=== PATIENT | male | born 1980 | race Two or more races ===

== ENCOUNTER 2017-08-13 07:14 | Day surgery (SDC) | payer BC ==
[~2017-08-13] VITALS: Ht 170.2 cm; Wt 123.0 kg
[2017-08-13 07:41] VITALS: BP 132/91
[2017-08-13] MEDS ORDERED: BUPIVACAINE/PF 0.5% ONE (07:58)
[2017-08-13] MEDS ORDERED: EPINEPHRINE 1 MG/ML, 1ML ONE (07:58)
[2017-08-13] MEDS ORDERED: MIDAZOLAM 1 MG/ML, 2ML ONE (10:10)
[2017-08-13] MEDS ORDERED: FENTANYL PF 100 MCG/2ML ONE (10:10)
[2017-08-13] MEDS ORDERED: KETOROLAC 30 MG/1 ML ONE (10:33)
[2017-08-13] MEDS ORDERED: DEXAMETHASONE 4 MG/ML, 1ML ONE (11:29)
[2017-08-13] MEDS ORDERED: CEFAZOLIN 1,000 MG ONE (11:29)
[2017-08-13] MEDS ORDERED: ONDANSETRON 2MG/ML, 2ML ONE (11:29)
[2017-08-13] MEDS ORDERED: PROPOFOL 10 MG/ML, 20ML ONE (11:29)
[2017-08-13] MEDS ORDERED: HYDROcodone/APAP 7.5-325MG/15ML UDC PO PRN (11:30)
[2017-08-13] MEDS ORDERED: METOPROLOL 1 MG/ML, 5ML IV PRN (11:30)
[2017-08-13] MEDS ORDERED: hydrALAzine 20 MG/ML, 1ML IV PRN (11:30)
[2017-08-13] MEDS ORDERED: ACETAMINOPHEN 325 MG TABLET PO PRN (11:30)
[2017-08-13] MEDS ORDERED: FENTANYL PF 100 MCG/2ML IV PRN (11:30)
[2017-08-13] MEDS ORDERED: DIAZEPAM 5 MG/ML, 2ML IVPush PRN (11:30)
[2017-08-13] MEDS ORDERED: ALBUTEROL SULFATE 2.5 MG/3 ML NPPB PRN (11:30)
[2017-08-13] MEDS ORDERED: LABETALOL 5MG/ML, 20ML IV PRN (11:30)
[2017-08-13] MEDS ORDERED: HYDROmorphone 1 MG/ML, 1ML IV PRN (11:30)
[2017-08-13] MEDS ORDERED: OXYcodone 5 MG/5 ML ORAL.SOL UDC PO PRN (11:30)
[2017-08-13] MEDS ORDERED: EPHEDRINE 50 MG/ML, 1ML IVPush PRN (11:30)
[2017-08-13] MEDS ORDERED: PROMETHAZINE 25 MG/ML, 1ML IV PRN (11:30)
[2017-08-13] MEDS ORDERED: ONDANSETRON 2MG/ML, 2ML IVPush PRN (11:30)
[2017-08-13] MEDS ORDERED: MEPERIDINE/PF 25MG/0.5ML IVPush PRN (11:30)
[2017-08-13] MEDS ORDERED: MIDAZOLAM 1 MG/ML, 2ML IV PRN (11:30)
[2017-08-13] MEDS ORDERED: OXYcodone 5 MG/5 ML ORAL.SOL UDC ONE (12:06)
[2017-08-13 12:50] VITALS: BP 140/88
[2017-08-13] MEDS ORDERED: OXYC5TAB3 PO (13:23)
[2017-08-13] MEDS ORDERED: OXYcodone/APAP 5/325MG TABLET PO PRN (13:30)
[2017-08-13] MEDS ORDERED: ONDANSETRON 2MG/ML, 2ML IV PRN (13:30)
[2017-08-13] MEDS ORDERED: morphine SULFATE 10 MG/ML, 1ML IV PRN (13:30)
== END 2017-08-13 14:15 | disposition home or self-care (01) ==
LOC: OR 07:14 → 4NOR 07:38 → OR 14:15
PROVIDERS: ATTEND Orthopaedic Surgery
DX: S52.592A Other fractures of lower end of left radius, initial encounter for closed fracture (principal); X58.XXXA Exposure to other specified factors, initial encounter; Y93.89 Activity, other specified; Y92.89 Other specified places as the place of occurrence of the external cause; Y99.8 Other external cause status
CPT/HCPCS: 25607; 73100; 76000; C1713; J0171; J0690; J1100; J1885; J2250; J2405; J2704; J3010; J3490